=== PATIENT | female | born 1955 | race Two or more races ===

== ENCOUNTER 2025-03-11 09:38 | Outpatient (RCR) | payer MEDICARE, SELFPAY ==
--- NOTE | 2025-03-11 11:16 | CTCCONSULT_ITS ---
[facility] [address] [place], [place] [address] Consultation Note Date: 03/11/2025 MR#: [id number] Name: REGINALD LEBLANC : 1955 Dx: C01 Malignant neoplasm of base of tongue Attending physician. Johnathon Barrera MD Reason for consultation. Patient with advanced base of tongue CA with neck mets History of Present Illness: 69-year-old lady with end-stage renal disease on dialysis 3 times a week noted to have a growing mass in the left lower neck oral region with CT of the neck 12/17/2024 revealing base of tongue CA 18.5 x 17 mm with left-sided posterior cervical chain and prevascular space adenopathy. FNA 12/19/2024 Path showed nonkeratinizing basaloid squamous cell CA. 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 Patient gets 3 times a week dialysis Monday in [place]. Past Medical History: Hypertension. End-stage renal disease on dialysis for 5 years. Prior cholecystectomy right ovary removal Allergies none to meds Social History: Former tobacco smoker social drinker Family history. Mother of colon cancer has 6 children age 51-26 all healthy. Meds. Amlodipine calcium Klonopin albuterol Review of Systems: Has felt the left lower neck mass growing for the past few weeks. Gets frequent diarrhea Physical Exam: General: Adequate nourished appearing lady no acute distress HEENT: Easily visible left lower neck mass measuring about 3 x 4 cm along with left base of tongue tumor about 2 x 3 cm. CV: Chest clear to auscultation heart regular rate and rhythm ABD: Soft no organomegaly or tenderness EXT: No cyanosis clubbing or edema Assessment: 1. 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 2. Basaloid squamous of CA can be aggressive, somewhat mitigated by p16 positive which generally respond well to chemoradiation. Unfortunately patient also has multiple comorbidities including end-stage renal disease on dialysis. 3. 7000 cGy to the tumor bed region of base of tongue and neck nodes with lower dose to subclinically involved areas will be delivered to patient. Side effects explained. Will attempt to use the modern VMAT method. 4. Spoke to patient about need for preradiation dental eval, port, PET scan and G-tube if possible prior to treatment beginning. 5. Thank you very much for allowing me to evaluate and manage this patient. Cc: Senthil Barrera MD Electronically signed by: Vincent Marquez MD, DABR 03/11/2025 11:14 AM
--- NOTE | 2025-03-11 11:21 | CTCTXPLN_ITS ---
[facility] [address] [place], [place] [address] Physician Clinical Treatment Planning Note Date of Service: 03/11/2025 Name: REGINALD DEANA JohansenO.B.: 1955 The patient has agreed to proceed with Radiation therapy. Tests and supporting medical records were interpreted to assist in defining the tumor location and extent of disease. Further imaging will be necessary to contour and delineate the volume to which the XRT will be provided. A. Treatment Intent: Curative B. Modality: 6 MV C. Requested Technique: VMAT D. Treatment Site: Head and neck E. Critical structures to be contoured on plan: F. In order to accomplish this plan, I am ordering/Prescribing the followin. Simulations (s) will be performed to accomplish a reproducible treatment position, to determine optimal treatment portals/beam arrangements, to design beam modifying devices and verify treatment portals on patient prior to the commencement of Radiation Therapy. Had a neck 2. Devices; for immobilization and beam shaping: Aquaplast 3. CT Guidance for placement of XRT roberson Scan area: 4. Portal images Frequency: 5. Invivo transit dose measurement once per week on all VMAT patients. 6. Special Physics Consult Requested for: 7. Other requests: G. Dose Objectives: Curative Electronically signed by: Vincent Marquez M.D. 03/11/2025 11:19 AM
--- NOTE | 2025-03-11 11:24 | CTCTXPLNST_ITS ---
Radiation Oncology Treatment Planning Sheet Name: REGINALD LEBLANC MR#: [id number] : 1955 Dx: C01 Malignant neoplasm of base of tongue Date of Service: 03/11/2025 Account #: ?? Pt Treatment Intent: curative palliative other: Stage: Procedure CPT # Ordered Spec. Procedure 19365 1 Telles Complex (set-up) 25529 Aqua Plast had a neck 1 Telles Simple 15678 IMRT Plan 46741 1 MLC Devices VMAT 31712 3 Telles 3 D 54570 TRTMT dev Complex 40916 Aqua Plast 1 TRTMT dev simple 09163 Basic Alexis 69887 9 Special Dosimetry 59896 Spec Physics 05051 Port Films 01034 SRS Cranial/1FX 35167 SBR 5 FX or Less /ex: 5 = 5 fx 39853 IMRT Simple 74897 7000 35 IMRT Complex 89917 IGRT 04212 33 Rad del com 6-10 73789 Rad del com 11 71819 Cont Med Physics 25187 7 Treatment Planning 22021 1 Rad del com 20 mev 08123 Rad del inter 02-04 29562 Rad del inter 07-16 47999 Rad del simple 6 57128 Rad del simple 07-16 21245 Special Port Plan 14268 TRTMT dev inter 04235 Isodose Complex 81892 Isodose simple 97628 Resp Motion Mgmt Simulation 91861 Placement of Fiducial Markers 14918 Electronically Signed By: Vincent Marquez MD, DABR 03/11/2025 11:22 AM
== END 2025-03-27 23:59 | disposition home or self-care (01) ==
LOC: SCTC 09:38
PROVIDERS: PCP Internal Medicine Pulmonary Disease; Referring Provider Internal Medicine Hematology & Oncology; Visit Provider Radiology Therapeutic Radiology
DX: C01 Malignant neoplasm of base of tongue (principal); C77.0 Secondary and unspecified malignant neoplasm of lymph nodes of head, face and neck; I12.0 Hypertensive chronic kidney disease with stage 5 chronic kidney disease or end stage renal disease; N18.6 End stage renal disease; Z99.2 Dependence on renal dialysis
CPT/HCPCS: 99213; G0463

== ENCOUNTER 2025-03-27 09:53 | Emergency (ER) | payer MEDICARE, SELFPAY ==
[2025-03-27 10:06] VITALS: BP 167/67; PULSE 79; RESP 20; TEMP 37.5; O2SAT 95; BMI 29.7
--- NOTE | 2025-03-27 10:32 | EDNOTE_ITS ---
ED Dental RME/HPI General Chief complaint: Dental/Oral/Throat Stated complaint: BLEEDING FROM THROAT DUE TO MASS X 1929 Time Seen by Provider: 03/27/25 10:32 Source: patient Arrival date/time: 03/27/25 09:53 Mode of arrival: wheelchair Limitations: no limitations RME / HPI RME / HPI Narrative: 69-year-old female presents to the ED with a complaint of spitting up blood. Patient is known to have throat cancer and today while at rehab developed hemoptysis. Patient is also a dialysis patient. Onset (ago): hour(s) Duration: intermittent Severity: moderate Relieving factors: nothing Context: other (History of throat cancer) Related Data Previous Rx's ?Medication ?Instructions ?Recorded azithromycin 250 mg tablet 250 mg PO QDAY #6 tabs 02/27 09/21 (Zithromax Z-Joel) Allergies Allergy/AdvReac Type Severity Reaction Status Date / Time gabapentin Allergy Intermediate Hallucinati Verified 03/27/25 09:57 ng Review of Systems Constitutional Constitutional: Reports system reviewed and no additional complaints, except as documented Eyes Eyes: Reports system reviewed and no additional complaints, except as documented, Denies dry eyes, Denies exophthalmos and Reports floaters Cardiovascular Cardiovascular: Denies chest pain with activity and Denies claudication ED Exam Narrative Physical exam: Posterior pharynx is pink and moist and I do not see any blood presently. Patient articulates well and she does not appear to be swallowing any fluid bloody or otherwise. The airway is patent. General Limitations: Present no limitations General appearance: Present alert and in no apparent distress Head Head exam: Present atraumatic Eye Eye exam: Present normal appearance and EOMI ENT ENT exam: Present normal exam, normal oropharynx and mucous membranes moist Neck Neck exam: Present normal inspection, full ROM and trachea midline Chest Chest inspection: Present normal inspection and symmetric chest wall rise Respiratory Respiratory exam: Present normal lung sounds bilaterally Cardiovascular Cardiovascular exam: Present regular rate, normal rhythm and normal heart sounds Extremities Exam Extremities exam: Present normal inspection and full ROM Back Exam Back exam: Present normal inspection and full ROM Neurological Exam Neurological exam: Present alert and oriented X3 Psychiatric Psychiatric exam: Present normal affect and normal mood Skin Skin exam: Present warm, dry, intact and normal color Course Course Course Narrative: Patient will have a course of Zithromax and she will be discharged in no apparent distress. She has to follow-up with her primary or and her doctor who is following her cancer. Quality Measures none (NA) Orders NA Vital Signs Vital signs: Vital Signs Temperature 99.5 F 03/27/25 10:06 Pulse Rate 79 03/27/25 10:06 Respiratory Rate 20 03/27/25 10:06 Blood Pressure 167/67 H 03/27/25 10:06 Pulse Oximetry (%) 95 03/27/25 10:06 Oxygen Delivery Method Room Air 03/27/25 10:06 Pulse ox 95% room air Dental / Oral MDM Narrative MDM Narrative:: I spoke with Dr. Fowler with regards to this patient believe these could be discharged from with a course of Zithromax. Patient is to follow-up with primary care physician as soon as possible or and her cancer doctor. Patient data External records reviewed:: Other (specify) (NA) Clinical information provided by:: patient Social determinants that could affect healthcare access:: none (NA) Patient has the following chronic illnesses:: NA How is presenting disease/condition affected by chronic disease/condition?: no chronic disease (CANCER, RENAL FAILURE) Evaluation data The following diagnostics were reviewed and interpreted by me:: other (specify) (NA) Lab and/or radiology exams considered but not ordered:: NA Interpretation Summary: NA Medications / Prescriptions Medications or Prescriptions considered but not ordered:: NA Medication administrations:: NA Consultations Consultation(s) initiated? (list below): No Diagnosis Dental Differential Diagnosis: gingival abscess, dental abscess and aphthous ulcer Most likely diagnosis given after review of the tests above:: NA Admission Indicated Admission indicated?: not indicated Explain why admission is indicated or not indicated:: NA Admission Request Was there a request for admission?: No Disposition Plan Disposition Plan: Discharge Discharge Attestation Discharge Attestation: The patient and all family members were given an opportunity to ask questions and understood the discharge instructions. Discharge instructions specifically effects, indications for sooner follow up or return to the emergency department, and the expected course of current diagnosis. Patient condition: Stable Discharge Plan Plan Patient Disposition: HOME (Self Care) Discharge Disposition comment: Patient discharged in no apparent distress Patient condition on transfer: Stable Prescriptions/Referrals Prescriptions/Med Rec: New azithromycin [Zithromax Z-Joel] 250 mg tablet 250 mg PO QDAY Qty: 6 0RF Problem List Clinical Impression: Hemoptysis Patient/Caregiver Discharge Instructions Discharge Activity: activity as tolerated Education Materials: ED Hemoptysis Print Language: Faroese Stand Alone Forms: [employer] Award Info., Patient Portal Info Letter PA/[employer] MANAGER Supervising Physician PA/[employer] MANAGER Supervising Physician: PARKER
== END 2025-03-27 11:38 | disposition home or self-care (01) ==
LOC: SERX 11:33
PROVIDERS: Emergency Provider Physician Assistant; PCP Internal Medicine Pulmonary Disease
DX: R04.2 Hemoptysis (principal)
CPT/HCPCS: 99282

== ENCOUNTER 2025-04-25 10:58 | Outpatient (RCR) | payer MEDICARE, SELFPAY ==
--- NOTE | 2025-04-01 19:24 | CTCSNOTE_ITS ---
[facility] [address] [place], [place] [address] CT Simulation Note Date: 04/01/2025 MR# [id number] Name: REGINALD LEBLANC : 1955 (A) DIAGNOSIS: C01 Malignant neoplasm of base of tongue (B) Patient was placed in supine position and used vaklok for immobilization purposes. (C) CT slices included head and neck (D) VMAT Will be needed for maximum sparing of adjacent normal critical structures. (E) Patient tolerated the simulation well and left the room in good condition. Electronically signed by: Vincent Marquez MD, TRAY 04/01/2025 7:21 PM
== END 2025-04-27 23:59 | disposition home or self-care (01) ==
LOC: SCTC 10:58
PROVIDERS: PCP Family Medicine; Referring Provider Family Medicine; Visit Provider Radiology Therapeutic Radiology
DX: Z51.0 Encounter for antineoplastic radiation therapy (principal); C01 Malignant neoplasm of base of tongue; C77.0 Secondary and unspecified malignant neoplasm of lymph nodes of head, face and neck; K12.33 Oral mucositis (ulcerative) due to radiation; Y84.2 Radiological procedure and radiotherapy as the cause of abnormal reaction of the patient, or of later complication, without mention of misadventure at the time of the procedure
CPT/HCPCS: 77014; 77290; 77300; 77301; 77334; 77336; 77338; 77385

== ENCOUNTER → 2025-05-13 | Outpatient (CLI) | payer MEDICARE, SELFPAY ==
--- NOTE | 2025-05-13 09:30 | XR_ITS ---
EXAMINATION: PET/CT FUSION SKULL TO THIGH EXAM DATE AND TIME: May 13, 2025 1050 hours INDICATIONS: Tongue cancer diagnosis staging prior to treatment CTDI:vol (mGy) 5.89 DLP: (mGycm) 537.99 PROCEDURE: 14.3 mCi FDG was administered intravenously To allow for distribution and uptake of radiotracer, the patient was allowed to rest quietly in a shielded room. Imaging was performed on an integrated 16-slice PET/CT scanner, with scanning from the skull base to the mid thigh. Serum blood glucose at the time of the injection was measured 81 mg/dL. CT scanning was performed without oral or intravenous contrast material. FINDINGS: Head and Neck: Subtle hypermetabolic activity posterior to the left side, 14 mm, axial image 61 Necrotic partially hypermetabolic metastatic left cervical lymph node 5.7 cm, lateral to the larynx axial image 68 18 mm hypermetabolic lymph node posterior to the angle of mandible on the left side image 55 Chest: Non hypermetabolic small tracheobronchial precarinal lymph nodes Opacity left base, consider pneumonia Abdomen and Pelvis: There is no shay hypermetabolism in retroperitoneal or pelvic chains. The spleen is normal in size and FDG avidity. Cirrhosis Moderate ascites Anasarca Musculoskeletal: Marrow uptake is within normal range. IMPRESSION: Subtle hypermetabolic activity posterior tongue, 14 mm 18 mm hypermetabolic lymph node posterior to the ankle the mandible on the left side Partially hypermetabolic 5.7 cm necrotic metastatic left cervical lymph node lateral to the larynx Subcentimeter non hypermetabolic tracheobronchial precarinal lymph nodes
== END | disposition home or self-care (01) ==
LOC: CDIM 09:13
PROVIDERS: PCP Internal Medicine Pulmonary Disease; Referring Provider Radiology Therapeutic Radiology; Visit Provider Radiology Therapeutic Radiology
DX: C77.0 Secondary and unspecified malignant neoplasm of lymph nodes of head, face and neck (principal); C01 Malignant neoplasm of base of tongue
CPT/HCPCS: 78815; A9552

== ENCOUNTER 2025-05-27 11:38 | Outpatient (RCR) | payer MEDICARE, SELFPAY ==
--- NOTE | 2025-04-29 12:15 | CTCTRTNOTE_ITS ---
[facility] [address] [place], [place] [address] Weekly Management Date: 04/29/2025 ?? Name: REGINALD Alanis.: 1955 A. Patient is currently at 2800 cGy. B. Patient is tolerating treatment well. C. Resume radiation therapy. Electronically signed by: Vincent Marquez M.D. 04/29/2025 12:13 PM
== END 2025-05-27 23:59 | disposition home or self-care (01) ==
LOC: SCTC 11:38
PROVIDERS: PCP Family Medicine; Referring Provider Family Medicine; Visit Provider Radiology Therapeutic Radiology
DX: Z51.0 Encounter for antineoplastic radiation therapy (principal); C01 Malignant neoplasm of base of tongue; K12.33 Oral mucositis (ulcerative) due to radiation; Y84.2 Radiological procedure and radiotherapy as the cause of abnormal reaction of the patient, or of later complication, without mention of misadventure at the time of the procedure
CPT/HCPCS: 77014; 77290; 77300; 77301; 77336; 77338; 77385

== ENCOUNTER 2025-05-30 11:31 | Outpatient (RCR) | payer MEDICARE, SELFPAY ==
--- NOTE | 2025-05-29 11:35 | CTCTRTNOTE_ITS ---
[facility] [address] [place], [place] [address] Weekly Management Date: 05/29/2025 ?? Name: REGINALD LEBLANC : 1955 A. Patient is currently at 4800 cGy. B. Patient is c/o ear pains. Examined by nurse with no pathology seen. C. Likely referred from throat pain Moderate mucositis noted. D. . Resume radiation therapy. E. Electronically signed by: Vincent Marquez M.D. 05/29/2025 11:33 AM
== END 2025-06-27 23:59 | disposition home or self-care (01) ==
LOC: SCTC 11:31
PROVIDERS: PCP Internal Medicine Pulmonary Disease; Referring Provider Internal Medicine Pulmonary Disease; Visit Provider Radiology Therapeutic Radiology
DX: Z51.0 Encounter for antineoplastic radiation therapy (principal); C01 Malignant neoplasm of base of tongue
CPT/HCPCS: 77385